=== PATIENT | male | born 1985 | race Caucasian/White ===

== ENCOUNTER 2016-09-17 17:45 | Emergency (ER) | payer SELFPAY ==
[~2016-09-17] VITALS: Ht 182.9 cm; Wt 100.0 kg
[~2016-09-17 17:45] MED LIST: IBUPROFEN600 MG PO; STERAPRED DS10 MG PO
[2016-09-17 18:10] VITALS: BP 127/78
[2016-09-17] MEDS ORDERED: MOTRIN800 MG PO (18:10)
[2016-09-17] MEDS ORDERED: CLINDAMYCIN300 M1 PO (18:10)
== END 2016-09-17 18:10 | disposition home or self-care (01) | DRG 603 ==
LOC: ED 17:45
PROC: 0H96XZZ Drainage of Back Skin, External Approach (ICD-10-PCS; principal; 2016-09-17)
DX: L02.212 Cutaneous abscess of back [any part, except buttock and flank] (principal); I10 Essential (primary) hypertension; F17.220 Nicotine dependence, chewing tobacco, uncomplicated

== ENCOUNTER 2016-10-03 08:20 | Emergency (ER) | payer SELFPAY ==
[~2016-10-03] VITALS: Ht 182.9 cm; Wt 89.6 kg
[~2016-10-03 08:20] MED LIST changes: +CLINDAMYCIN300 M1 PO; +MOTRIN800 MG PO
[2016-10-03] MEDS ORDERED: CLINDAMYCIN300 M1 PO (08:53)
[2016-10-03 08:54] VITALS: BP 146/93
== END 2016-10-03 09:00 | disposition home or self-care (01) | DRG 603 ==
LOC: ED 08:20
PROC: 0H96XZZ Drainage of Back Skin, External Approach (ICD-10-PCS; principal; 2016-10-03)
DX: L02.212 Cutaneous abscess of back [any part, except buttock and flank] (principal)

== ENCOUNTER 2017-01-13 23:08 | Emergency (ER) | payer SELFPAY ==
[~2017-01-13] VITALS: Ht 182.9 cm; Wt 98.0 kg
[2017-01-14] MEDS ORDERED: PERCOCET 5/325M1 TAB PO (00:22)
[2017-01-14] MEDS ORDERED: BACTRIM DS1 TAB PO (00:22)
[2017-01-14] MEDS ORDERED: KEFLEX500 MG PO (00:22)
[2017-01-14 00:39] VITALS: BP 130/73
== END 2017-01-14 00:37 | disposition home or self-care (01) | DRG 603 ==
LOC: ED 23:08
DX: L02.423 Furuncle of right upper limb (principal)

== ENCOUNTER 2018-09-13 11:22 | Emergency (ER) | payer SELFPAY ==
[~2018-09-13 11:22] MED LIST changes: +BACTRIM DS1 TAB PO; +KEFLEX500 MG PO; +PERCOCET 5/325M1 TAB PO
== END 2018-09-13 11:38 | disposition left against medical advice (07) | DRG 951 ==
LOC: ED 11:22 → LWOBS 11:37
DX: Z91.19 Patient's noncompliance with other medical treatment and regimen (principal)